=== PATIENT | male | born 1970 | race Caucasian/White ===

== ENCOUNTER → 2022-04-29 13:54 | Outpatient (CLI) | payer BC, SELFPAY ==
--- NOTE | 2022-04-29 14:00 | XR_ITS ---
FINAL REPORT CLINICAL HISTORY: PAIn. patient injured left ankle two months ago, f/u study. FINDINGS: LEFT ANKLE Three views of the left ankle were obtained. There is no acute fracture or dislocation. The joint spaces and mortise are intact. There are calcaneal spurs. There is lateral soft tissue swelling. IMPRESSION: Lateral soft tissue swelling with no acute bony abnormality. Reviewed, Interpreted and Dictated by Jamel Jain III, MD Transcribed by Delia Munguia Authenticated by Jamel Jain III, MD on 04/29/2022 03:48:37 PM [facility]
--- NOTE | 2022-04-29 14:00 | XR_ITS ---
FINAL REPORT CLINICAL HISTORY: foot pain, left foot injury two months ago, patient is wearing an orthopedic boot. F/U study. FINDINGS: LEFT FOOT Three views of the left foot demonstrate no acute fracture or dislocation. The visualized joint spaces are normally aligned. There are mild degenerative changes. There are calcaneal spurs. There are chronic calcifications lateral to the cuboid, one of these likely represents an os peroneum. The soft tissues are unremarkable. IMPRESSION: No acute bony abnormality. Chronic calcifications lateral to the cuboid, one of these likely represents an os peroneum. Reviewed, Interpreted and Dictated by Jamel Jain III, MD Transcribed by Delia Munguia Authenticated by Jamel Jain III, MD on 04/29/2022 03:48:37 PM [facility]
== END ==
PROVIDERS: Visit Provider Podiatrist
DX: M79.672 Pain in left foot (principal)
CPT/HCPCS: 73610; 73630

== ENCOUNTER → 2022-05-06 15:04 | Outpatient (CLI) | payer BC, SELFPAY ==
--- NOTE | 2022-05-06 15:05 | MR_ITS ---
FINAL REPORT CLINICAL HISTORY: pain. LATERAL SIDED ANKLE PAIN [id number]. SWELLING IN ANKLE. PAIN WHEN WALKING. FINDINGS: Multiplanar MR imaging of the left foot was performed without contrast. There is mild degenerative change. The bony structures are intact without evidence of fracture, bone bruise or marrow edema. There is peroneus longus tenosynovitis at the level of the cuboid. The anterior talofibular ligament is not well visualized and may be torn. The musculature is intact. The plantar aponeurosis is intact. No soft tissue mass or cyst is identified. There is anterolateral foot soft tissue edema. IMPRESSION: Possible tear of the anterior talofibular ligament. Peroneus longus tenosynovitis. Reviewed, Interpreted and Dictated by Jamel Jain III, MD Transcribed by Jenny Franklin Authenticated and [facility]
== END ==
PROVIDERS: Visit Provider Podiatrist
DX: M25.572 Pain in left ankle and joints of left foot (principal); M25.372 Other instability, left ankle
CPT/HCPCS: 73718

== ENCOUNTER → 2022-10-06 08:50 | Outpatient (CLI) | payer BC, SELFPAY ==
--- NOTE | 2022-10-06 08:56 | XR_ITS ---
FINAL REPORT CLINICAL HISTORY: foot pain FINDINGS: LEFT FOOT Three views of the left foot demonstrate no acute fracture or dislocation. There are multiple ossific densities consistent with os peroneum. The visualized joint spaces are normally aligned. There is a small plantar calcaneal spur. Mild soft tissue swelling is noted. IMPRESSION: No acute bony abnormality. Reviewed, Interpreted and Dictated by Forrest Rivers MD Transcribed by Leora Hager Authenticated and [facility]
--- NOTE | 2022-10-06 08:56 | XR_ITS ---
FINAL REPORT CLINICAL HISTORY: ankle pain FINDINGS: LEFT ANKLE Three views demonstrate no acute fracture or dislocation. The visualized joint spaces are normally aligned. There is a small plantar calcaneal spur. Mild soft tissue swelling is noted. IMPRESSION: No acute bony abnormality. Reviewed, Interpreted and Dictated by Forrest Rivers MD Transcribed by Leora Hager Authenticated and [facility]
== END ==
PROVIDERS: PCP Family Medicine; Visit Provider Podiatrist
DX: S93.402A Sprain of unspecified ligament of left ankle, initial encounter (principal); M25.372 Other instability, left ankle; Z87.81 Personal history of (healed) traumatic fracture
CPT/HCPCS: 73610; 73630